=== PATIENT | female | born 1990 | race Caucasian/White ===

== ENCOUNTER → 2016-09-09 19:31 | Outpatient (CLI) | payer SELFPAY ==
[2016-09-09 20:28] LABS: PROTEIN - URINE 16.4 mg/dL (0.0-11.9)
== END | disposition home or self-care (01) ==
LOC: D.LABREF 19:31
PROVIDERS: Specialist
DX: R80.9 Proteinuria, unspecified (principal)

== ENCOUNTER → 2016-12-08 17:01 | Outpatient (CLI) | payer MEDICAID | END | disposition home or self-care (01) | LOC: D.LDO 17:01 | DX: Z34.83 Encounter for supervision of other normal pregnancy, third trimester (principal); Z3A.34 34 weeks gestation of pregnancy ==

== ENCOUNTER → 2016-12-31 17:19 | Outpatient (CLI) | payer MEDICAID ==
[~2016-12-31 17:19] MED LIST: PRENATAL COMPLE1 TAB PO
[2016-12-31 18:18] LABS: APPEARANCE HAZY (CLEAR); BILIRUBIN NEGATIVE (NEGATIVE); COLOR DK YELLOW (YELLOW); GLUCOSE NEGATIVE (NEGATIVE); KETONE MODERATE mg/dL (NEGATIVE); NITRITE NEGATIVE (NEGATIVE); PROTEIN NEGATIVE (NEGATIVE)
[2016-12-31 18:20] LABS: BACTERIA MODERATE /hpf (NONE SEEN); CALCIUM OXALATE CRYSTALS 0-5 /hpf (NONE SEEN); LEUKOCYTE ESTERASE TRACE (NEGATIVE); MUCUS >1+ /lpf (NONE SEEN); RED CELLS - URINE 0-5 /hpf (0-5); WHITE CELLS - URINE 0-5 /hpf (0-5)
== END | disposition home or self-care (01) ==
LOC: D.LDO 17:19
PROVIDERS: Obstetrics & Gynecology
DX: O26.899 Other specified pregnancy related conditions, unspecified trimester (principal)

== ENCOUNTER 2017-01-11 05:00 | Inpatient (IN) | payer MEDICAID ==
[~2017-01-11] VITALS: Ht 149.9 cm; Wt 69.4 kg
[2017-01-11 05:27] VITALS: BP 120/68; Ht 149.9 cm; Wt 69.4 kg
[2017-01-11 06:13] LABS: HEMATOCRIT 29.8 % (36.0-48.0); HEMOGLOBIN 9.2 g/dL (12-16); MCH 24.5 pg (26.0-34.0); MCHC 30.9 g/dL (31.0-37.0); MCV 79.3 fL (80.0-100.0); MEAN PLATELET VOLUME 11.2 fL (7.4-10.4); RBC 3.76 10x6/uL (4.00-5.40); RDW 15.5 % (11.5-14.5); WBC 7.8 10x3/uL (4.8-10.8)
[2017-01-11 06:17] LABS: APPEARANCE HAZY (CLEAR); BILIRUBIN NEGATIVE (NEGATIVE); COLOR YELLOW (YELLOW); GLUCOSE NEGATIVE (NEGATIVE); KETONE NEGATIVE (NEGATIVE); LEUKOCYTE ESTERASE NEGATIVE (NEGATIVE); NITRITE NEGATIVE (NEGATIVE); PROTEIN NEGATIVE (NEGATIVE); SPECIFIC GRAVITY 1.015 (1.005-1.020); UROBILINOGEN NORMAL (NORMAL)
[2017-01-11 20:58] VITALS: BP 106/62
--- NOTE | 2017-01-11 20:58 | NUR ---
PT TRANSFERRED FROM ROOM 1277 AT 2044 FOR CONTINUED PP CARE VIA W/C. ORIENTED TO ROOM, BATHROOM, CL USE, LIGHTS, BED RAILS, AND TV. PT VERBALIZED UNDERSTANDING. INSTRUCTED TO CALL RN PRIOR TO GETTING OOB WITH NEXT VOID, VERBALIZED UNDERSTANDING. SHIFT ASSESSMENT COMPLETED. VSS. FUNDUS FIRM U2 WITH SMALL AMT RUBRA LOCHIA NOTED TO PERIPAD, NO CLOTS PRESENT. BOWEL SOUNDS PRESENT AND ACTIVE X4 QUAD, PT REPORTS THAT SHE IS PASSING FLATUS. REPORTS THAT PAIN IS CURRENTLY 3/10. PAIN MEDICATIONS DISCUSSED WITH PT, VERBALIZED UNDERSTANDING. DENIES NEED FOR INTERVENTION AT THIS TIME. BED PLACED IN LOW POSITION WITH UPPER SIDE RAILS RAISED X2. CL AND PHONE WITHIN PT REACH. INSTRUCTED ON CONTACTING NBN FROM ROOM PHONE. VERBALIZED UNDERSTANDING. WILL CONT TO MONITOR AND ASSIST PRN. COKE GIVEN PER PT REQUEST.
--- NOTE | 2017-01-11 21:37 | NUR ---
ROUNDS MADE. PT SITTING UP IN HIGH FOWLERS POSITION CONVERSING WITH S/O. STATES THAT PAIN REMAINS 3/10, DENIES NEEDS FOR INTERVENTION. ICE WATER GIVEN PER REQUEST. BED IN LOW POSITION WITH UPPER SIDE RAILS RAISED X2. CL AND PHONE WITHIN REACH. WILL CONT TO MONITOR AND ASSIST PRN.
--- NOTE | 2017-01-11 22:22 | NUR ---
PT CALLS VIA CL, REQUESTS MOTRIN FOR PAIN. RN TO ROOM, PT REPORTS THAT PAIN IS 6/10, INTERMITTENT ABD CRAMPING AND "SOME" STINGING TO PERINUM. PT REPORTS THAT SHE IS ATTEMPTING TO BREASTFEED INFANT AND CRAMPING HAS INCREASED. MEDICATION DISCUSSED WITH PT, SIDE EFFECTS REVIEWED, VERBALIZED UNDERSTANDING, DENIES QUESTIONS. PT DENIES NEED TO VOID AT THIS TIME. BED IN LOW POSITION WITH UPPER SIDE RAILS RAISED X2. CL AND PHONE WITHIN PT REACH. WILL CONT TO MONITOR AND ASSIST PRN.
--- NOTE | 2017-01-11 23:20 | NUR ---
PAIN REASSESSMENT COMPLETED. PAIN NOW 01/11. PT HOLDING SKIN TO SKIN. DISCUSSED NORCO WITH PT, AGREEABLE. INSTRUCTED ON SIDE EFFECTS WITH EMPHASIS PLACED ON PLACING INFANT IN CRIB IF SHE FEELS LIKE SHE IS GOING TO FALL ASLEEP OR FEELS DIZZY. INSTRUCTED TO USE CL FOR ASSIST PRN, VERBALIZED UNDERSTANDING. S/O REMAINS AT BEDSIDE AND SUPPORTIVE OF PT. BED IN LOW POSITION WITH UPPER SIDE RAILS RAISED X2. CL AND PHONE WITHIN PT REACH. WILL CONT TO MONITOR AND ASSIST PRN.
--- NOTE | 2017-01-12 00:10 | NUR ---
PAIN REASSESSMENT COMPLETED. PT RESTING WITH EYES CLOSED. DID NOT OPEN EYES WHEN RN ENTERED ROOM. LAYING ON RIGHT SIDE. RESPIRATIONS REGULAR AND UNLABORED. S/O REMAINS AT BEDSIDE WATCHING TV. DENIES NEEDS. BED IN LOW POSITION WITH UPPER SIDE RAILS RAISED X2. CL AND PHONE REMAIN WITHIN PT REACH. WILL CONT TO MONITOR AND ASSIST PRN.
--- NOTE | 2017-01-12 02:06 | NUR ---
ROUNDS MADE. PT HOLDING INFANT AT THIS TIME. PLACED IN CRIB. PT UP TO VOID. VOIDED 800 MLS IN HAT. MODERATE AMT RUBRA LOCHIA NOTED TO PERIPAD, NO CLOTS. CHUX CHANGED. ICE WATER GIVEN. ICE PACK GIVEN FOR PERINUM. PAIN 2/10, DENIES NEED FOR INTERVENTION. S/O AT BEDSIDE AND SUPPORTIVE OF PT. PT BACK TO BED. BED IN LOW POSITION, WITH UPPER SIDE RAILS RAISED X2. CL AND PHONE WITHIN PT REACH. WILL CONT TO MONITOR AND ASSIST PRN.
--- NOTE | 2017-01-12 04:48 | NUR ---
ROUNDS MADE. S/O HOLDING AT THIS TIME. PT RESTING WITH EYES CLOSED. RESPIRATIONS REGULAR AND UNLABORED. NO S/S OF DISTRESS NOTED. BED IN LOW POSITION WITH UPPER SIDE RAILS RAISED X2. CL AND PHONE WITHIN REACH. WILL CONT TO MONITOR AND ASSIST PRN.
[2017-01-12 05:09] LABS: BASOPHILS 0.2 % (0-2); HEMATOCRIT 27.5 % (36.0-48.0); HEMOGLOBIN 8.3 g/dL (12-16); IMMATURE GRANULOCYTES 0.9 % (0-5); LYMPHOCYTES 20.6 % (15-50); MCHC 30.2 g/dL (31.0-37.0); MCV 79.5 fL (80.0-100.0); MEAN PLATELET VOLUME 11.9 fL (7.4-10.4); MONOCYTES 9.7 % (2-11); NEUTROPHILS 67.6 % (40-80); PLATELET COUNT 153 10x3/uL (130-400); RBC 3.46 10x6/uL (4.00-5.40); RDW 15.6 % (11.5-14.5); WBC 9.4 10x3/uL (4.8-10.8)
--- NOTE | 2017-01-12 05:16 | NUR ---
ROUNDS MADE. PT SITTING IN HIGH FOWLERS BREAST FEEDING AT THIS TIME. STATES THAT CRAMPING IS 7/10. REQUEST NORCO AND MOTRIN. GIVEN PER REQUEST. ICE WATER GIVEN. DENIES ADDITIONAL NEEDS AT THIS TIME. WILL CONT TO MONITOR AND ASSIST PRN. BED IN LOW POSITION WITH UPPER SIDE RAILS RAISED X2. CL AND PHONE WITHIN REACH. S/O REMAINS AT BEDSIDE AND SUPPORTIVE OF PT.
--- NOTE | 2017-01-12 06:03 | NUR ---
PAIN REASSESSMENT COMPLETED. PAIN 09/11. PT REPORTS THAT CRAMPING IS JUST INCREASING WITH . ICE WATER GIVEN. S/O REMAINS AT BEDSIDE AND SUPPORTIVE OF PT. DENIES ADDITIONAL NEEDS AT THIS TIME. CL AND PHONE WITHIN PT REACH. BED IN LOW POSITION WITH UPPER SIDE RAILS RAISED X2.
[2017-01-12 06:13] LABS: RAPID PLASMA REAGIN Non Reactive (Non Reactive)
[2017-01-12 08:05] VITALS: BP 96/55
--- NOTE | 2017-01-12 08:05 | NUR ---
THIS RN TO ROOM FOR SHIFT ASSESSMENT. PT SITTING UP IN BED HOLDING . PLACED IN CRIBETTER FOR SHIFT ASSESSMENT. VSS, SHIFT ASSESSMENT COMPLETED, SEE FLOWSHEET FOR DOC. PT RATES PAIN 2/10 AT THIS TIME, CRAMPING IN ABD. PT STATES PAIN MEDS ADMIN THIS MORNING HELPED. PT DENIES ANY HEAVY BLEEDING OR PASSING CLOTS THROUGHOUT THE NIGHT. FF, ML, U/U. BLADDER DISTENDED. MODERATE RUBRA LOCHIA WITHOUT CLOTS. PT INSTRUCTED ON EMPTYING BLADDER TO REDUCE BLEEDING, AND ON HEAVY LOCHIA AND WHAT TO REPORT, UNDERSTANDING VERBALIZED. DISCUSSED D/C TO HOME WITH PT, STATES SHE FEELS SHE IS READY. PT DENIES ANY NEEDS AT THIS TIME, STATES SHE IS GOING TO GET UP TO BR TO VOID. SRUx2, CL IN REACH.
--- NOTE | 2017-01-12 09:13 | NUR ---
Kartik Whitman 01/[birth year]/17 S: Patient states she feels great. O: Patient semi reclined in bed, just finished nursing . Infant lying in cradle position in front of the left breast, sleeping. Masood on delivery. Asked if she had questions, concerns, are your nipples sore? Patient states no questions, her nipples are fine. She has 3 children and did breastfeed before. Patient states she had a little bit of a rough delivery but things turned out great, her other children haven't been up her to see baby. She thinks they will wait until she goes home to introduce them. does take time and patience in the beginning. Explained feeding cues, breastfeed babies should feed on demand when showing feeding cues, this will help with establishing her milk supply. Encouraged to latch to the breast for every feeding. Provided and explained handouts on skin to skin, positions for , waking a sleeping baby, and what to expect the first week. It's normal for breastfeed babies to eat often. Explained how to care for her breast when taking a shower, she may apply lanolin as needed, this does not have to be remove prior to latching baby. Explained how to verify is latched correctly to the breast, baby should be tummy to tummy, nose opposite of nipple, gently support head, and allow infant to self latch. Asked if she needs anything patient declined, will follow up. A: Patient appears confident with . P: Continue to support exclusively during hospital visit. Melo Pereira, CLC
--- NOTE | 2017-01-12 09:50 | NUR ---
THIS RN TO ROOM FOR PT CHECK. PT SITTING UP IN BED HOLDING . PT DENIES ANY NEEDS AT THIS TIME, STATES PAIN LEVEL IS "OKAY". SRUx2, CL IN REACH. WILL CONT TO MONITOR.
--- NOTE | 2017-01-12 11:55 | NUR ---
PT CALLS OUT MARKET EDITOR LIGHT REQUESTING WATER AND PAIN MEDICATION. THIS RN TO ROOM. PT RATING PAIN 7/10 IN ABD, CRAMPING "LIKE CONTRACTIONS." PT ADMIN PRN IBUPROFEN AND NORCO 5 ORDERED SEE EMAR FOR DOC. PT PROVIDED WITH MUG OF FRESH ICE WATER. PT DENIES BLEEDING CONCERNS OR ANY OTHER NEEDS AT THIS TIME. SRUx2, CL IN REACH.
--- NOTE | 2017-01-12 13:05 | NUR ---
THIS RN TO ROOM FOR PAIN REASSESSMENT. PT RATES PAIN 2/10, DENIES NEEDS. WILL CONT TO MONITOR.
--- NOTE | 2017-01-12 16:20 | NUR ---
PT GIVEN WRITTEN PRESCRIPTIONS FOR PAIN CONTROL POST D/C TO HOME, WELL D/C INSTRUCTIONS. PT VERBALIZES UNDESTANDING AND DENIES QUESTIONS. PIV REMOVED WITHOUT INCIDENT, NO BLEEDING NOTED, BANDAID APPLIED. PT SIGNS CHART COPIES OF INSTRUCTIONS. PT INSTRUCTED TO CALL OUT SLIDE FORMING MACHINE OPERATOR LIGHT WHEN READY FOR D/C TO HOME ONCE IS BUCKLED IN CARSEAT. UNDERSTANDING VERBALIZED.
--- NOTE | 2017-01-12 16:35 | NUR ---
PT TAKEN OUT VIA W/C TO PRIVATE VEHICLE FOR D/C TO HOME. INSTRUCTIONS AND RX IN HAND. FOB TO DRIVE HOME.
== END 2017-01-12 17:15 | disposition home or self-care (01) | DRG 775 ==
LOC: D.LD 05:00
PROVIDERS: ADMIT Obstetrics & Gynecology
PROC: 10E0XZZ Delivery of Products of Conception, External Approach (ICD-10-PCS; principal; 2017-01-11)
PROC: 10907ZC Drainage of Amniotic Fluid, Therapeutic from Products of Conception, Via Natural or Artificial Opening (ICD-10-PCS; 2017-01-11)
DX: O35.8XX0 Maternal care for other (suspected) fetal abnormality and damage, not applicable or unspecified (principal); Z3A.39 39 weeks gestation of pregnancy; Z37.0 Single live birth; O70.0 First degree perineal laceration during delivery

== ENCOUNTER → 2018-08-18 16:47 | Outpatient (CLI) | payer OTHER ==
[2018-08-18 17:10] LABS: HCG URINE NEGATIVE (NEGATIVE)
== END | disposition home or self-care (01) ==
LOC: D.LAB 16:47
PROVIDERS: Family Medicine
DX: N91.2 Amenorrhea, unspecified (principal)